=== PATIENT | male | born 1930 | race Caucasian/White ===

== ENCOUNTER 2018-07-26 23:38 | Inpatient (IN) | payer MEDICAID, MEDICARE, OTHER ==
[~2018-07-26] VITALS: Ht 175.3 cm; Wt 62.9 kg
[~2018-07-26 23:38] MED LIST: ASPI-818 PO; HTN MED PO; HYDR12.58 PO
[2018-07-26] MEDS ORDERED: CEFEPIME 2GM/50 ML (PMX) 50 ML IVPB STA (23:41)
[2018-07-27] VITALS (11 sets, daily range): BP systolic 99–120; BP diastolic 56–67; PULSE 86–128; RESP 17–20; Ht 175.3 cm; Wt 62.9 kg
[2018-07-27] MEDS ORDERED: SOD CHLORIDE 0.9% 1,800 ML IV ONE
[2018-07-27] MEDS ORDERED: ACETAMINOPHEN 325 MG TAB PO ONE
[2018-07-27] MEDS ORDERED: VANCOMYCIN 1 GM (PMX) 250 ML IVPB ONE
[2018-07-27] MEDS ORDERED: DOCUSATE SODIUM 100 MG CAP PO PRN (02:30)
[2018-07-27] MEDS ORDERED: ACETAMINOPHEN 325 MG TAB PO PRN (02:30)
[2018-07-27] MEDS ORDERED: ONDANSETRON 4 MG TAB PO PRN (02:30)
[2018-07-27] MEDS ORDERED: NACL 0.9% 3 ML SYG IV SCH (02:30)
[2018-07-27] MEDS ORDERED: VANCOMYCIN IV PER PHARMACY XX SCH (02:30)
--- NOTE | 2018-07-27 03:20 | ERD ---
ER Documentation Chief Complaint Chief Complaint BIB private ambulance,form [facility],low hbg 6.1 per SNF HPI This is an 88-year-old male brought in by private EMS from [facility] for low H&H. Apparently had a blood test checked earlier today that showed a hemoglobin of 6.1. Patient himself is alert and denies any complaints at this time. ROS All systems reviewed and are negative except as per history of present illness. Medications Home Meds Reported Medications Hydrochlorothiazide* (Hydrochlorothiazide*) 12.5 Mg Tablet, 12.5 MG PO DAILY 04/06/13 [Htn Med] No Conflict Check, PO DAILY 04/06/13 Aspirin (Aspirin Low Dose) 81 Mg Tablet.dr, 81 MG PO DAILY 04/06/13 Allergies Allergies: Coded Allergies: No Known Allergy (Unverified , 04/06/13) PMhx/Soc History of Surgery: Yes (HERNIA, COLONOSCOPY) Anesthesia Reaction: No Hx Neurological Disorder: No Hx Respiratory Disorders: No Hx Cardiac Disorders: Yes (IRREGULAR HEART BEAT, TESTS (-)) Hx Psychiatric Problems: Yes (ANXIETY, PANIC ATTACKS. FAM SUPPORT) Hx Miscellaneous Medical Probl: No Hx Alcohol Use: No Hx Substance Use: No Hx Tobacco Use: Yes (former) Smoking Status: Former smoker Physical Exam Vitals Vital Signs Date Temp Pulse Resp B/P (MAP) Pulse Ox O2 O2 Flow FiO2 Time Delivery Rate 07/27/18 100.0 92 18 122/66 100 Room Air 02:15 (84) 07/27/18 101.3 00:10 07/26/18 101.5 120 18 105/57 100 23:39 (73) Physical Exam Const: No acute distress Head: Atraumatic Eyes: Normal Conjunctiva ENT: Normal External Ears, Nose and Mouth. Neck: Full range of motion. No meningismus. Resp: Clear to auscultation bilaterally Cardio: Regular rate and rhythm, no murmurs Abd: Soft, non tender, non distended. Normal bowel sounds Skin: No petechiae or rashes Back: No midline or flank tenderness Ext: No cyanosis, or edema Neur: Awake and alert Psych: Normal Mood and Affect Result Diagram: 07/26/18 6198 07/26/18 0525 Results 24 hrs Laboratory Tests Test 07/26/18 23:53 07/26/18 23:54 07/27/18 02:14 White Blood Count 23.8 10^3/ul Red Blood Count 1.52 10^6/ul Hemoglobin 5.8 g/dl Hematocrit 17.6 % Mean Corpuscular Volume 115.8 fl Mean Corpuscular Hemoglobin 38.2 pg Mean Corpuscular 33.0 g/dl Hemoglobin Concent Red Cell Distribution Width % Platelet Count 1480 10^3/UL Mean Platelet Volume 9.6 fl Immature Granulocytes % 2.900 % Neutrophils % % Segmented Neutrophils 66 % % (Manual) Band Neutrophils % (Manual) 19 % Lymphocytes % % Lymphocytes % (Manual) 4 % Monocytes % % Monocytes % (Manual) 7 % Eosinophils % % Eosinophils % (Manual) 1 % Basophils % % Basophils % (Manual) 1 % Myelocytes % (Manual) 1 % Promyelocytes % (Manual) 1 % Nucleated Red Blood Cells % 0.1 /100WBC Immature Granulocytes # 0.690 10^3/ul Neutrophils # 10^3/ul Neutrophils # (Manual) 16.8 10^3/ul Band Neutrophils # 4.5 10^3/ul Lymphocytes (Manual) 0.9 10^3/ul Lymphocytes # 10^3/ul Monocytes # 10^3/ul Monocytes # (Manual) 1.6 10^3/ul Eosinophils # 10^3/ul Basophils # 10^3/ul Basophils # (Manual) 0.2 10^3/ul Myelocytes # 0.2 10^3/ul Promyelocytes # 0.2 10^3/ul Nucleated Red Blood Cells # 10^3/ul Pathologist YES-PATH TO CONFIRM Review (Hematology) Platelet Estimate INCREASED Giant Platelets 2 % Polychromasia 3+ Anisocytosis 3+ Macrocytosis 3+ Prothrombin Time 18.5 Sec Prothrombin Time Ratio 1.4 INR International 1.53 Normalized Ratio Activated 38.8 Sec Partial Thromboplast Time Sodium Level 135 mmol/L Potassium Level 4.7 mmol/L Chloride Level 99 mmol/L Carbon Dioxide Level 31 mmol/L Anion Gap 5 Blood Urea Nitrogen 34 mg/dl Creatinine 1.18 mg/dl Est Glomerular Filtrat mL/min Rate mL/min Glucose Level 99 mg/dl Calcium Level 8.7 mg/dl Total Bilirubin 0.5 mg/dl Direct Bilirubin 0.00 mg/dl Indirect Bilirubin 0.5 mg/dl Aspartate Amino 54 IU/L Transf (AST/SGOT) Alanine 50 IU/L Aminotransferase (ALT/SGPT) Alkaline Phosphatase 113 IU/L Troponin I 0.024 ng/ml Total Protein 8.2 g/dl Albumin 3.6 g/dl Globulin 4.60 g/dl Albumin/Globulin Ratio 0.78 POC Venous Lactate 1.3 mmol/L 1.5 mmol/L Current Medications Medications Dose Sig/Maynor Start Time Status Last (Trade) Ordered Route PRN Stop Time Admin Dose Reason Admin Cefepime HCl 50 ml @ ONCE STAT 07/26/18 DC 07/27/18 100 mls/hr IVPB 23:41 00:11 07/27/18 00:10 Vancomycin 250 ml @ ONCE ONCE 07/27/18 DC 07/27/18 HCl 125 mls/hr IVPB 00:00 01:48 07/27/18 01:59 650 mg ONCE ONCE 07/27/18 DC 07/27/18 Acetaminophen PO 00:00 00:10 (Tylenol 07/27/18 00:01 Tab) Sodium 1,800 ml @ BOLUS X1 07/27/18 DC 07/27/18 Chloride 1,800 mls/hr ONCE IV 00:00 00:04 07/27/18 00:59 Aspirin 81 mg DAILY PO 07/27/18 (Halfprin) 09:00 Sodium 1,000 ml @ Q10H IV 07/27/18 Chloride 100 mls/hr 02:04 IV Flush 3 ml PER 07/27/18 (NS 3 ml) PROTOCOL IV 02:30 Ondansetron 4 mg Q6H PRN 07/27/18 HCl (Zofran PO 02:30 Tab) NAUSEA/VOMITI NG 650 mg Q6H PRN 07/27/18 Acetaminophen PO .PAIN 1-3 02:30 (Tylenol OR TEMP Tab) Docusate 100 mg Q12H PRN 07/27/18 Sodium PO 02:30 (Colace) .CONSTIPATION Famotidine 20 mg Q12 PO 07/27/18 (Pepcid) 09:00 Cefepime HCl 50 ml @ Q8 IVPB 07/27/18 100 mls/hr 06:00 Vancomycin VANCOMYCIN PER 07/27/18 HCl (Vanco PER PHARMACY PROTOCOL XX 02:30 Iv Per Pharmacy) 250 ml @ Q24H IVPB 07/28/18 Vancomycin/So 125 mls/hr 02:00 dium Chloride Procedures/MDM Emergency department course: Patient seen in vomit triage was placed in bed from evaluation as a cardiac workup. Was crossmatch for 2 units of blood. Placed on continuous cardiac monitoring with continuous pulse oximetry. Code sepsis called upon arrival given patient's vital signs. Sepsis workup initiated serial exams are stable. Diagnostic data: EKG: Rate/Rhythm: [Normal Sinus Rhythm] QRS, ST, T-waves: [No changes consistent w/ acute ischemia] Impression: [No evidence of ischemia or arrhythmia] Chest X-ray 1V Interpreted by me: Soft Tissue: No acute abnormalities Bones: No acute abnormalities Mediastinum/Cardiac Silhouette/Lungs: [No acute abnormalities] Medical decision makin-year-old male with severe low anemia. Crossmatch for 2 units. Patient will be admitted to Dr. Manley who is on-call for the patient's IPA. Patient's infectious symptoms have not stabilized and the patient is at risk of rapid decompensation. The patient will be admitted for careful hydration, antibiotic therapy, and infectious source control. Severe Sepsis Assessment: Infectious Source: [pyleonephritis] End organ damage indicated by: [ Hypotension( SBP < 90 or >40 mmHG drop or MAP < 65) Severe Sepsis Managment: Blood Cultures X 2 before broad spectrum antibiotics initiated 1142 upon patient's arrival 30 ml/kg NS bolus Completed Initial Lactate: [normal] Repeat Lactate again normal, however trending upwards from 1.3-1.5 Critical Care: Time: 45 minutes, independent of any separately billable procedural time Treatments/Evaluations: Emergent fluid management, while maintaining close respiratory support. Immediate broad spectrum antibiotic therapy. Simultaneous assessment for possible sources in order to direct therapy. Consi deration for invasive and chemical support to prevent respiratory or cardiac collapse. Septic Shock Assessment (1 hour post 30 ml/kg fluid bolus): Hypotension (SBP < 90 or 40 mmHg drop, MAP < 65): [No] Lactic acid > 4.0 [No] Perfusion Reassessment for Septic Shock: 98.6 temp, pulse 88, respiratory rate 16, blood pressure 111/74 Heart Exam: [Tachycardic] Lung Exam: [No Crackles] Capillary Refill: [Delayed] Peripheral Pulses: [Radially present] Skin: [Mottled, pale] H Accepting Care Team: Current data and ongoing care discussed. Time: 1:45 AM Primary Provider: Dr. Echeverria Consulting: Deferred to inpatient team Outstanding Data: none Departure Diagnosis: Primary Impression: Sepsis Sepsis type: sepsis due to unspecified organism Qualified Codes: A41.9 - Sepsis, unspecified organism Additional Impression: Anemia Anemia type: unspecified type Qualified Codes: D64.9 - Anemia, unspecified Condition: Serious ARABELLA BOLTON Jul 27, 2018 03:20
[2018-07-27] MEDS: CEFEPIME 1GM/50 ML (PMX) 50 ML IVPB SCH ×3 (05:54→20:46)
[2018-07-27] MEDS: SOD CHLORIDE 0.9% 1,000 ML IV SCH ×2 (05:57→12:04)
[2018-07-27] MEDS: FAMOTIDINE 20 MG TAB PO SCH ×2 (09:35→20:46)
[2018-07-27] MEDS: ASPIRIN (EC) 81 MG TAB PO SCH (09:35)
--- NOTE | 2018-07-27 10:49 | HP ---
DATE OF ADMISSION: 07/27/2018 REASON FOR VISIT: Low hemoglobin. HISTORY OF PRESENT ILLNESS: An 88-year-old male with a history of hypertension and chronic debilitat ion, in bedridden state, was brought in from group home facility after he was found to have prof ound anemia. On review of systems, the patient denies any chest pain or shortness of breath. No abd ominal pain. No nausea or vomiting. No fevers. No genitourinary symptoms. Initial evaluation reve aled white blood cell count of 23,800 and a hemoglobin of 5.8, the platelet count of 1480. The patie nt received 1 unit of packed RBC and his repeat hemoglobin was 6.7. I do not see any urinalysis done in the emergency room. IMAGING: Chest x-ray showed decrease mild to moderate right pleural effusion with right lung base at electasis versus aerospace disease. PAST MEDICAL HISTORY: 1. Hypertension. 2. Chronic debilitation. MEDICATIONS PRIOR TO ADMISSION: 1. Hydrochlorothiazide. 2. Aspirin. PHYSICAL EXAMINATION: GENERAL: Well-developed, well-nourished elderly male who is in no apparent distress. VITAL SIGNS: Blood pressure is 99/58, pulse 95, temperature 98.2, respirations 20. HEENT: Extraocular muscles are intact. Pupils are equal and reactive to light bilaterally. Sclerae are anicteric. Oropharynx is clear and moist. NECK: Supple, no JVD, no carotid bruits. LUNGS: Clear to auscultation bilaterally. CARDIAC: Regular rate and rhythm. No murmurs, rubs or gallops. ABDOMEN: Soft, nontender, nondistended, normoactive bowel sounds. EXTREMITIES: Bilateral Unna boots are in place. ASSESSMENT: 1. An 88-year-old male with profound anemia, rule out gastrointestinal bleed. 2. Leukocytosis with no clear evidence of infection. 3. Chronic debilitation. 4. DNR code status PLAN: Place in tele observation and transfuse 2 additional units of packed RBC, check stool for occu lt blood, and urinalysis. Continue room broad spectrum IV antibiotics. Monitor CBC. Dictated By: BUBBA CESAR/KATELYN Conf#: [id number] DID#: [id number] CC: EM VELAZQUEZ MD;*EndCC*
[2018-07-28] VITALS (9 sets, daily range): BP systolic 106–123; BP diastolic 61–67; PULSE 81–100; RESP 19–20
[2018-07-28] MEDS: SOD CHLORIDE 0.9% 1,000 ML IV SCH ×2 (00:13→08:04)
[2018-07-28] MEDS ORDERED: VANCOMYCIN 750 MG (PMX) 250 ML IVPB SCH (02:00)
[2018-07-28] MEDS: CEFEPIME 1GM/50 ML (PMX) 50 ML IVPB SCH ×2 (05:22→14:34)
[2018-07-28] MEDS: ASPIRIN (EC) 81 MG TAB PO SCH (08:41)
[2018-07-28] MEDS: FAMOTIDINE 20 MG TAB PO SCH (08:41)
[2018-07-28] MEDS ORDERED: COLLAGENASE 5 GM (UD JAR) TOP SCH (09:00)
[2018-07-28] MEDS ORDERED: LEVO500T10 PO (09:13)
--- NOTE | 2018-07-28 09:14 | PDOCDIS ---
Discharge Instructions CONDITION Shawna Patient Condition: Lilian Good HOME CARE INSTRUCTIONS: Shawna Diet Instructions: Lilian MAC MD Jul 28, 2018 09:14
== END 2018-07-28 16:49 | disposition home or self-care (01) | DRG 812 ==
LOC: E/R 23:38 → TEL 07-27 02:15
PROVIDERS: ADMIT Internal Medicine; ATTEND Internal Medicine
PROC: 30233N1 Transfusion of Nonautologous Red Blood Cells into Peripheral Vein, Percutaneous Approach (ICD-10-PCS; principal; 2018-07-27)
DX: D64.9 Anemia, unspecified (principal); D47.1 Chronic myeloproliferative disease; I10 Essential (primary) hypertension; Z66 Do not resuscitate; E78.5 Hyperlipidemia, unspecified; E03.9 Hypothyroidism, unspecified; K21.9 Gastro-esophageal reflux disease without esophagitis; Z79.82 Long term (current) use of aspirin; Z87.891 Personal history of nicotine dependence
CPT/HCPCS: 36415; 36430; 71045; 80053; 81003; 82550; 82553; 83036; 83605; 84443; 84484; 85025; 85610; 85730; 86850; 86900; 86901; 86920; 87040; 87081; 87086; 93005; 96365; 96375; A4310; J0692; J3370; J7030; P9016